=== PATIENT | male | born 1955 | race Two or more races ===

== ENCOUNTER 2020-07-02 14:31 | Emergency (ER) | payer SELFPAY ==
[~2020-07-02] VITALS: Ht 162.6 cm; Wt 72.8 kg
--- NOTE | 2020-07-02 15:05 | NUR ---
PT TO RADIOLOGY
--- NOTE | 2020-07-02 15:29 | NUR ---
BREAK RN: THIS IS A 64 YEAR OLD MALE WHO SPEAKS [place]AN[place], DAUGHTER AT BS FOR TRANSLATION. PT HAS HAD 11 DAY HISTORY, OF INCREASE WEAKNESS, FEVER, FATIQUE, BLOODY SPUTUM. PT WAS SEEN AT [facility] WITH 2 COVID TEST NEGATIVE. PT PLACED IN ISOLATION ROOM, ON YARD SUPERVISOR SINSUS AND CONTINOUS SP02 AT 94%RA, AND CYCLE VS. DISCUSS PLAN OF CARE WITH PT AND DAUGHTER, VERBALIZED NO NEEDS AT THIS TIME.
[2020-07-02 15:57] LABS: INTERNATIONAL NORMALIZED RATIO 0.99 (0.93-1.1); PROTHROMBIN TIME 10.5 Seconds (9.6-11.5)
[2020-07-02 16:02] LABS: BASOPHILS % (AUTO) 0 % (0-1); EOSINOPHILS % (AUTO) 0 % (1-7); LYMPHOCYTES % (AUTO) 14 % (22-44); MEAN CORPUSCULAR HEMOGLOBIN 31.4 pg (27.5-34.5); MEAN CORPUSCULAR HGB CONC 34.7 g/dL (33.2-36.2); MEAN PLATELET VOLUME 8.4 fL (7.4-10.4); MONOCYTES % (AUTO) 9 % (2-9); NEUTROPHILS % (AUTO) 77 % (42-75); PLATELET COUNT 272 x10^3/uL (130-400); RED BLOOD COUNT 4.66 x10^6/uL (4.38-5.82); RED CELL DISTRIBUTION WIDTH 12.7 % (9.4-14.8)
[2020-07-02 16:05] LABS: ALANINE AMINOTRANSFERASE 64 U/L (12-78); ALBUMIN 3.3 g/dL (3.4-5.0); ALKALINE PHOSPHATASE 61 U/L (45-117); ANION GAP 7 mmol/L (5-15); BILIRUBIN,TOTAL 0.4 mg/dL (0.2-1.0); CALCIUM 8.6 mg/dL (8.5-10.1); CHLORIDE 106 mmol/L (98-107); TOTAL PROTEIN 7.7 g/dL (6.4-8.2); TROPONIN I < 0.015 ng/mL (0.000-0.045)
[2020-07-02 16:06] LABS: MD NO
--- NOTE | 2020-07-02 17:00 | NUR ---
pt in bed, nochange
[2020-07-02 19:02] VITALS: BP 132/86
--- NOTE | 2020-07-02 19:05 | NUR ---
report of pt from edgar lópez and assuming care of pt at this time.
== END 2020-07-02 19:08 | disposition home or self-care (01) ==
LOC: ED 18:36
DX: J18.9 Pneumonia, unspecified organism (principal); B34.9 Viral infection, unspecified; R50.9 Fever, unspecified; R94.31 Abnormal electrocardiogram [ECG] [EKG]; R51.9 Headache, unspecified; I10 Essential (primary) hypertension; E78.5 Hyperlipidemia, unspecified
CPT/HCPCS: 36415; 70450; 71045; 80053; 84484; 85025; 85610; 93005; 99284; 99285